=== PATIENT | female | born 1955 | race Caucasian/White ===

== ENCOUNTER 2021-07-26 16:48 | Inpatient (IN) | payer MEDICARE, OTHER, SELFPAY ==
[2021-07-26 17:15] VITALS: BP 130/57; PULSE 66; RESP 16; TEMP 36.8; O2SAT 93; BMI 28.2
[2021-07-26 20:00] VITALS: BP 116/62; PULSE 62; RESP 18; TEMP 36.9; O2SAT 98
[2021-07-26 20:41] VITALS: O2SAT 93
[2021-07-26] MEDS: Heparin Injection (Vial) 5,000 UNIT/ML VIAL 5000 UNIT SC (21:37)
[2021-07-26] MEDS: Atorvastatin Calcium 20 MG Tablet PO (21:41)
[2021-07-26] MEDS: MELATONIN 3 MG TABLET PO (21:41)
[2021-07-26] MEDS: dexAMETHasone 4 MG Tablet 8 MG PO (21:41)
[2021-07-26] MEDS: levETIRAcetam 1,000 MG Tablet 1000 MG PO (21:41)
[2021-07-26] MEDS: QUEtiapine 25 MG Tablet 75 MG PO (21:41)
[2021-07-26] MEDS: busPIRone 5 MG Tablet PO (21:41)
[2021-07-26 22:15] LABS: Bedside Glucose 122 mg/dL (70-110)
[2021-07-27 06:23] LABS: Absolute Lymphocyte Count 1.17 X10^3/uL (0.83-4.51); Absolute Neutrophil Count 6.7 X10^3/uL (2.0-7.7); Basophil# 0.01 X10^3/uL; Basophil% 0.1 % (0-1); Hematocrit 37.9 % (37-47); Hemoglobin 13.1 g/dL (12.0-15.0); Lymphocyte # 1.17 X10^3/ul (0.83-4.51); Lymphocyte % 13.5 % (19-41); Mean Corp Hgb Conc 34.6 g/dL (32-36); Mean Corpuscular Hgb 29.2 pg (27.0-32.0); Mean Corpuscular Volume 84.6 fL (81-99); Mean Platelet Vol. 10.9 fl (6.2-12.0); Monocyte# 0.71 X10^3/uL; Monocyte% 8.2 % (0-10); NRBC Flagged by Analyzer 0 % (0-5); Neutrophil # 6.67 X10^3/uL (2.7-7.7); Neutrophil % 77.2 % (47-70); Platelet Count 205 K/mm3 (150-450); RBC Distribution Width CV 14.2 % (11.6-14.6); RBC Distribution Width SD 43.6 fl (35.1-43.9); Red Blood Count 4.48 M/mm3 (4.2-5.4); White Blood Count 8.7 K/mm3 (4.4-11.0)
[2021-07-27 07:06] LABS: Bedside Glucose 104 mg/dL (70-110)
[2021-07-27 08:00] VITALS: BP 126/85; PULSE 67; RESP 15; TEMP 35.7; O2SAT 100
[2021-07-27] MEDS: Multivitamins,Therapeutic Tablet 1 TABLET PO (08:19)
[2021-07-27] MEDS: dexAMETHasone 4 MG Tablet 2 MG PO ×2 (08:19→17:18)
[2021-07-27 08:34] VITALS: BP 133/84; BP 143/86; BP 144/92; PULSE 61; PULSE 68; PULSE 83
[2021-07-27] MEDS: busPIRone 5 MG Tablet PO ×2 (10:14→22:18)
[2021-07-27] MEDS: Fluticasone 0.05% 1 SPRAY NASAL.SRY NASAL (10:14)
[2021-07-27] MEDS: Heparin Injection (Vial) 5,000 UNIT/ML VIAL 5000 UNIT SC ×2 (10:15→22:18)
[2021-07-27] MEDS: hydroCHLOROthiazide 12.5mg 12.5 MG PO (10:16)
[2021-07-27] MEDS: levETIRAcetam 1,000 MG Tablet 1000 MG PO ×2 (10:16→22:18)
[2021-07-27] MEDS: Pantoprazole Sodium 40 MG Tablet PO (10:17)
[2021-07-27] MEDS: Senna/Docusate Sodium 1 Tablet 2 TABLET PO ×2 (10:18→22:18)
[2021-07-27] MEDS: PARoxetine CR 12.5 MG Tablet 25 MG PO (10:19)
[2021-07-27] MEDS: QUEtiapine 25 MG Tablet 75 MG PO ×2 (10:20→18:00)
[2021-07-27] MEDS: Ascorbic Acid 500 MG Tablet PO (11:09)
[2021-07-27 11:16] LABS: Bedside Glucose 116 mg/dL (70-110)
[2021-07-27 11:54] LABS: ALB/GLOB Ratio 0.9 RATIO (0.9-2.4); AST(SGOT) 19 U/L (15-37); Alanine Aminotransfer ALT/SGPT 30 U/L (13-56); Albumin, Serum 3.2 g/dL (3.2-5.0); Alkaline Phosphatase 70 U/L (45-117); Anion Gap 5 (5-15); BUN 23 mg/dL (7-18); BUN/Creat Ratio 29.2 RATIO (10-20); Calcium,Total 9.8 mg/dL (8.5-10.1); Chloride 108 mmol/L (98-107); Creatinine, Serum 0.79 mg/dL (0.55-1.02); EST Glomerular Filtration Rate 77 mL/min (>60); Est Glom Filt Rate - Afr Amer 94 mL/min (>60); Estimated Creatinine Clearance 49.12 ml/min; Globulin 3.5 g/dL (2.2-4.2); Glucose 128 mg/dL (74-106); Phosphorus 3.4 mg/dL (2.5-4.9); Protein, Total 6.7 g/dL (6.4-8.2); Sodium Level 141 mmol/L (136-145)
[2021-07-27 13:38] VITALS: O2SAT 100
[2021-07-27 16:16] LABS: Bedside Glucose 198 mg/dL (70-110)
[2021-07-27] MEDS: Insulin Lispro 100 UNIT/ML INSULN.PEN SC ×2 (17:19→22:28)
[2021-07-27 19:30] VITALS: BP 126/75; PULSE 62; RESP 16; TEMP 36.6; O2SAT 95
[2021-07-27 21:11] LABS: Bedside Glucose 150 mg/dL (70-110)
[2021-07-27 22:00] VITALS: PULSE 75; RESP 16; O2SAT 96
[2021-07-27] MEDS: MELATONIN 3 MG TABLET PO (22:18)
[2021-07-27] MEDS: Atorvastatin Calcium 20 MG Tablet PO (22:18)
[2021-07-28 06:45] LABS: Bedside Glucose 106 mg/dL (70-110)
[2021-07-28 08:00] VITALS: BP 117/68; PULSE 71; RESP 18; TEMP 36.6; O2SAT 97
[2021-07-28] MEDS: QUEtiapine 25 MG Tablet 75 MG PO (08:03)
[2021-07-28] MEDS: hydroCHLOROthiazide 12.5mg 12.5 MG PO (09:28)
[2021-07-28] MEDS: PARoxetine CR 12.5 MG Tablet 25 MG PO (09:28)
[2021-07-28] MEDS: Multivitamins,Therapeutic Tablet 1 TABLET PO (09:29)
[2021-07-28] MEDS: levETIRAcetam 1,000 MG Tablet 1000 MG PO ×2 (09:29→19:57)
[2021-07-28] MEDS: Senna/Docusate Sodium 1 Tablet 2 TABLET PO ×2 (09:29→19:56)
[2021-07-28] MEDS: busPIRone 5 MG Tablet PO ×2 (09:29→19:54)
[2021-07-28] MEDS: Ascorbic Acid 500 MG Tablet PO (09:29)
[2021-07-28] MEDS: Pantoprazole Sodium 40 MG Tablet PO (09:29)
[2021-07-28] MEDS: dexAMETHasone 4 MG Tablet 2 MG PO ×2 (09:30→17:09)
[2021-07-28] MEDS: Heparin Injection (Vial) 5,000 UNIT/ML VIAL 5000 UNIT SC ×2 (09:39→21:56)
[2021-07-28] MEDS: Fluticasone 0.05% 1 SPRAY NASAL.SRY NASAL (09:39)
--- NOTE | 2021-07-28 10:00 | NURSING ---
Patient agitated, cursing at staff, yelling and screaming cuss words. Patient repetitively stating, let me and it is over and my doesn't understand. Patient is alert to self and cannot state where she is or what her husbands name is. Refused breakfast. Multiple cues to get up OOB to go the bathroom with staff and constant cues on how to use the walker. 1:1 provided and ineffective. Patient assisted back to bed after using the bathroom. Call siddiqui in place, bed placed in low position. updated this nurse this morning that her normal Seroquel dose for her mental illness is 200mg and he will bring in her pill bottle for this nurse to observe.
[2021-07-28 10:48] LABS: MG Sendout 2.2 mg/dL (1.6-2.3)
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
[2021-07-28 11:10] LABS: Bedside Glucose 140 mg/dL (70-110)
[2021-07-28 11:45] VITALS: O2SAT 98
--- NOTE | 2021-07-28 11:58 | REHABEVAL_ITS ---
Admission Information Primary Diagnosis:: Debility due to malignant brain tumor with recent craniotomy for debulking. Status Changes from Prescreening?: No changes Identified Actual Problem List:: Skin Intergrity, Pain, ALteration in Cmfrt, Cognitve Impr/Memory Loss, Depression, Alteration in Nutrition, Mobility Impaired, Ineffective Communication, Fluid Change-Dehydration and Alteration-Leisure Activ. Potential Problem List:: DVT, Bleeding, Infection, UTI, Aspiration, Falls, Skin Integrity and Depression Risk of Complications DVT: JOAN Hose and - (Heparin 5000 units subcu twice daily) Bleeding: Monitor Lab Values, Nursing to Teach Precautions for anti-coagulation therapy., Wound, if applicable, to be assessed every shift. and Stroke patients assessed for lethargy or change in status. Infection: Clinical Staff to Monitor for S/S of infection: and S/S of infection include fever, redness, warmth, etc. Urinary Tract Infection: Monitor for frequency, burning, discomfort, or incontinence. and Nursing will obtain urine sample for urinalysis and C&S when ordered. Aspiration: Clinical staff will monitor for coughing, drooling, congestion., Speech will evaluate swallowing and dsyphasia. and Nursing will monitor patient swallowing during meals. Falls: Patient will be evaluated for Fall Precautions and Patient will be placed on Fall Precautions as indicated per protocol. Skin Breakdown: Nursing will assess skin daily using assessment tool. and Nursing will place on Skin Breakdown Precautions as indicated. Pain: Clinical staff will assess patient's pain level per protocol., Medications will be given, if needed, and the pain level reassessed. and Other methods: Massage, distraction, decrease stimulus, etc. used PRN. Plan of Care Patient requires physician specializing in physical medicine and rehab oversight to provide close medical supervision of rehab issues including: Pain Management, Sleep Problems, Bowel and Bladder, Medical and co-morbidity Management, DVT prophylaxis, Rehabilitation Leadership and Coordination of treatment team Patient needs Physical Therapy: For a minimum of 1 hour and At least 5 out of 7 days Patient needs Physical Therapy to improve:: Mobility, Strengthening, Transfers, Stretching, ROM, Endurance, Stairs, Gait and Balance Patient needs Occupational Therapy: For a minimum of 1 hour and At least 5 out of 7 days Patient needs Occupational Therapy to improve ADL's incl.: Eating, Grooming, Bathing, Dressing, Toileting, Toilet transfers, Community Reintegration, Higher functioning activities, Household tasks, Adaptive Equipment, Splinting and Other activities as determined Patient requires speech therapy: For a minimum of 1 hour and At least 5 out of 7 days Patient requires speech therapy for: Swallowing, Cognition, Language Skills and Compensatory Strategies Patient requires 24/ Rehabilitation Nursing for: Pain Issues, Identifying and preventing risk factors, Monitoring and reporting current medical conditions, Assisting with ambulation, transfer, and all ADL's, Teaching patients about disease process and medications, Family teaching, Providing safe environment, Bowel and Bladder Issues, Skin integrity and Medication Management Patient needs Funeral Assistant/ Case Management for: Discharge Planning, Arranging Home Equipment or Services and Family Interventions Patient needs Dietary and Nutrition Services for: Adequate Nutrition, Nutritional Supplements and Nutritional Education Goals Patient will remain: free from falls and or injury at time of discharge. Patient will perform bed mobility at: MOD I level of assist. Patient will complete transfers from bed to chair at: MOD I level of assist. Patient will ambulate: 100 feet, with LRD and - (250 feet without an assistive device independently.) Patient will complete upper body dressing at: MOD I level of assist. Patient will complete lower body dressing at: MOD I level of assist. Patient will complete toileting at: MOD I level of assist. Patient will perform bathing at: MOD I level of assist. Patient will complete grooming at: MOD I level of assist. Patient will complete home management skills at: MOD I level of assist. Patient will achieve: - (1 curb step and 3 steps with 1 handrail at mod I in order to return home safely.) Patient will have pain level of: of 3 or less Patient's skin will: remain intact Patient will receive: adequate nutrition. Discharge Planning Pt Prognosis for Sig. Practical Improv. w/in Reasonable Time: Good Estimated Length of stay (days): 21 Anticipated D/C Destination: Home w/ family or friends Was Preadmission Assessment Accurate?: Yes
[2021-07-28 12:17] LABS: Mucous, Urine 0 SEEN /hpf (<or=2+)
[2021-07-28 12:20] LABS: Color, Urine Yellow (Yellow); Glucose, Dipstick Normal (Normal); Ketone-Dipstick Negative (Negative); Leukocyte Esterase-Dipstick 500 /ul (Negative); Nitrite-Dipstick Negative (Negative); Occult Blood-Urine 50 /ul (Negative); Protein-Dipstick Negative (Negative); Specific Gravity, Urine 1.015 (1.002-1.030); Urine Bilirubin Dipstick Negative (Negative); Urine Clarity Sl. Cloudy (Clear); Urine Urobilinogen Normal (Normal)
[2021-07-28 12:27] LABS: Bacteria 2+ /hpf (None Seen); Red Blood Cells-Urine 0-5 SEEN /hpf (0-5); Squamous Epithelial Cells - UA 0-5 SEEN /hpf (5-10); White Blood Cells 25-50 SEEN /hpf (0-5)
[2021-07-28 16:21] LABS: Bedside Glucose 129 mg/dL (70-110)
[2021-07-28 19:45] VITALS: BP 107/63; PULSE 59; RESP 16; TEMP 36.4; O2SAT 98
[2021-07-28] MEDS: Cefadroxil 500 MG CAPSULE PO (19:54)
[2021-07-28] MEDS: QUETIAPINE FUMARATE 200 MG TABLET PO (19:54)
[2021-07-28] MEDS: MELATONIN 3 MG TABLET PO (19:56)
[2021-07-28] MEDS: Atorvastatin Calcium 20 MG Tablet PO (19:56)
[2021-07-28 22:06] LABS: Bedside Glucose 131 mg/dL (70-110)
--- NOTE | 2021-07-29 04:40 | NURSING ---
Pt awakened for toileting needs @ 03:45. After getting pt repositioned in bed, pt became anxious. Pt could be heard calling out for someone anbd wanted to know where her could be found, why he wasn't visiting her, and why staff was keeping him from visiting her. Pt became loud and yelled out at one point that she wanted her . Staff reoriented pt to the time of day,attempting to calm her outbursts. Pt became quiet and fell back to sleep after a few minutes when staff was called to other pt's call lights.
--- NOTE | 2021-07-29 05:25 | NURSING ---
per pt request for early physician primary care sports medicine to enable early bedtime.
--- NOTE | 2021-07-29 05:26 | NURSING ---
Addendum entered by Vickie Givens 07/29/21 05:29: Pt incontinent in shower while complaining that spouse was not present to take care of pt. Original Note: Pt perseverating on family not showing concern for pt needs and desires. Pt became defiant with staff for a.m. ADLs. Pt noncompliant with teds this a.m. Staff repositioned pt to bed after showering. Pt is quiet and resting at this moment.
[2021-07-29 07:36] LABS: Bedside Glucose 91 mg/dL (70-110)
[2021-07-29] MEDS: dexAMETHasone 4 MG Tablet 2 MG PO ×2 (08:27→17:39)
[2021-07-29] MEDS: levETIRAcetam 1,000 MG Tablet 1000 MG PO ×2 (08:32→20:43)
[2021-07-29] MEDS: Cefadroxil 500 MG CAPSULE PO ×2 (08:32→20:42)
[2021-07-29] MEDS: busPIRone 5 MG Tablet PO ×2 (08:32→20:42)
[2021-07-29] MEDS: PARoxetine CR 12.5 MG Tablet 25 MG PO (08:33)
[2021-07-29] MEDS: Ascorbic Acid 500 MG Tablet PO (08:34)
[2021-07-29] MEDS: Senna/Docusate Sodium 1 Tablet 2 TABLET PO ×2 (08:34→20:43)
[2021-07-29] MEDS: Fluticasone 0.05% 1 SPRAY NASAL.SRY NASAL (08:35)
[2021-07-29] MEDS: Pantoprazole Sodium 40 MG Tablet PO (08:35)
[2021-07-29] MEDS: Multivitamins,Therapeutic Tablet 1 TABLET PO (08:35)
[2021-07-29] MEDS: Heparin Injection (Vial) 5,000 UNIT/ML VIAL 5000 UNIT SC ×2 (08:39→20:44)
[2021-07-29 08:54] VITALS: BP 123/74; PULSE 72; RESP 18; TEMP 36.4; O2SAT 96
[2021-07-29 11:10] LABS: Bedside Glucose 146 mg/dL (70-110)
--- NOTE | 2021-07-29 12:17 | PN_ITS ---
Progress Note Afebrile VSS Maintaining appropriate oxygen saturation on RA Oral intake barely adequate. She will drink fluids when you offer to her but, does not initiate on her own. Discussed with nursing - Keeps repeating that she wants to . Reviewed the PT/OT/ST notes Medication list reviewed. I reviewed the path report from [facility]. 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 There were many immunohistochemistry genetic tests done which I have reviewed but, I am not familiar with. Physical Exam Const alert Constitutional Narrative: Her is in the room and Adele is calm and appropriate with me. She was very agitated this morning. She calms down when Griffin shows up but, when he leaves she can no remember that he has been here and she is agitated again. Resp clear to auscultation bilaterally Resp Narrative: able to follow commands. Effort and Inspection: able to speak in complete sentences Cardio regular rate and regular rhythm GI normal to inspection, nondistended, normoactive bowel sounds and soft to palpation Extremity no pedal edema Assessment & Plan Assessment/Plan (1) Delirium: (2) Glioma of brain: (3) UTI (urinary tract infection): (4) Paranoid schizophrenia: (5) Status post craniotomy: PLAN: 1. Efforts to do therapy are thwarted by agitation and delirium which is multifactorial. She has a glioma, she had a craniotomy for resection/debulking but there is residual tumor, she has been on steroids for cerebral edema, she has a UTI and she is having an exacerbation of her underlying chronic mental illness (paranoid schizophrenia). Will try again tomorrow to reach her psychiatrist at the [facility] for advice on adjusting her psych meds. 2. she has poor motivation to do therapy since she tells me she is dying and she wants to lay in bed. Will try and get the mental illness under beter control and treat the UTI. Can not taper the steroids any faster. Will continue to try and get her to participate but, if things do not turn around in the next few days we will be forced to downgrade the level of care. 3. Continue the Cefadroxil. Visit Charges Inpatient E&M: 65993 Subs Hosp L2
[2021-07-29 16:20] LABS: Bedside Glucose 115 mg/dL (70-110)
[2021-07-29 20:30] VITALS: BP 126/76; PULSE 74; RESP 16; TEMP 36.9; O2SAT 98
[2021-07-29] MEDS: QUETIAPINE FUMARATE 200 MG TABLET PO (20:41)
[2021-07-29] MEDS: Atorvastatin Calcium 20 MG Tablet PO (20:43)
[2021-07-29] MEDS: MELATONIN 3 MG TABLET PO (20:43)
[2021-07-29 22:00] VITALS: PULSE 74; RESP 16; O2SAT 98
[2021-07-29 22:00] LABS: Bedside Glucose 147 mg/dL (70-110)
--- NOTE | 2021-07-30 03:27 | NURSING ---
Reviewed and agree with DIESEL LOCOMOTIVE CRANE OPERATOR assessment and note.
[2021-07-30] MEDS: Haloperidol Lactate 5 MG/ML Vial 3 MG IM (07:34)
--- NOTE | 2021-07-30 07:40 | PN_ITS ---
Progress Note Day #3 cefadroxil for UIT. final C&S pending Afebrile Vital signs stable Maintaining appropriate oxygen saturation on room air She is agitated and yelling today. She insists she is dying and does not know where she is. States I am all alone. Insists her Griffin has not been to see her and he is out fooling around. Remembers that she had surgery but, does not know where she is now or why she is here. She will make eye contact with me when I ask her to look at me and she is listening to what I say. I reoriented her and explained to her why she is confused and why she is in rehab. We discussed that the glioma is treatable. I called Griffin and asked that he come in and he agreed to come in this morning. She was given 3 mg of IM Haldol and she agreed to taking the medication. She was put back in bed. I informed her that Griffin would be in very soon to see her. Physical Exam Const alert Constitutional Narrative: oriented to person only Eyes PERRL, EOMs intact bilaterally, conjunctivae normal and no scleral icterus Neck No nuchal rigidity and supple Resp Resp Narrative: unlabored, no conversational dyspnea, CTA, not tachypneic Cardio regular rate, regular rhythm and no gallops GI normal to inspection, nondistended, normoactive bowel sounds, soft to palpation and non-tender Extremity no pedal edema Psych Appearance: grossly normal Attitude: uncooperative and agitated Activity / Motor Behavior: restless, avoids eye contact and other She will look at me when I ask her to. Speech: loud Mood & Affect: irritable and labile affect Thought Process: confused and illogical Memory / Cognition: memory grossly impaired Insight: poor Judgement: poor Assessment & Plan Assessment/Plan (1) Delirium: (2) UTI (urinary tract infection): (3) Status post craniotomy: (4) Glioma of brain: (5) Paranoid schizophrenia: PLAN: 1. Adele's delirium is multifactorial. She has a Glioma of the brain, she has long standing hx of paranoid schizophrenia that has been exacerbated by steroids, brain tumor, recent surgery, fear of dying. She was given 3 mg of Haldol IM and she is now resting. Griffin will be coming to the hospital as soon as he can get here. She is calmer when he is here. Will touch base with her psychiatrist today to see what adjustments can be made to her medications. Steroids are on a taper. It may help to have a family member stay at night. Will discuss with Griffin. 2. Will continue the Cefadroxil and await the final culture and sensitivity res ults to make changes if necessary. 3. Continue therapy when she is cooperative. 4. Blood sugars are coming down as the steroids are tapered and she has not had to get any insulin. Will DC the accuchecks and the SSI. 5. she has appts at [facility] on the ......Will have nursing see if this can be rescheduled. She is not emotionally ready for this and I think we should delay. I reached the answering service for the [facility]. I will call back about 9;30 when they should be answering the phone in the office. Visit Charges Inpatient E&M: 28540 Subs Hosp L2
--- NOTE | 2021-07-30 07:46 | NURSING ---
0700 am care completed with queuing, pt returned to bed and declined to sit in the chair, and laid down in the bed. pt stated that he did not come in and see her yesterday and she wanted to see him, but he was probably out having fun letting her in here. pt was reminded several times that he was in to see her yesterday and would be in today during visiting hour which was at 4o'clock. pt looked at this staff member suspiciously and kept stating that he was not here yesterday at all. pt got oob on her own and went to the straight chair and staff went to see that she was ok. staff again stated to pt that her spouse was here yesterday and pt started yelling that she wanted to see her and she wanted to see him now. staff aske pt if she wanted us to call her spouse and pt yelled that he was out having fun. staff reported to the doctor that pt was getting increasingly agitated and the doctor went in to talk to pt. 1st staff recieved [place] and was given. doctor talked spouse and updated him on pts behavior and asked him to come to see pt 0745 pt resting quietly in the bed at this time. no needs are voiced and call light in reach
[2021-07-30] MEDS: dexAMETHasone 4 MG Tablet 2 MG PO ×2 (08:45→16:56)
[2021-07-30] MEDS: Multivitamins,Therapeutic Tablet 1 TABLET PO (08:45)
[2021-07-30] MEDS: busPIRone 5 MG Tablet PO ×2 (08:45→20:01)
[2021-07-30] MEDS: Fluticasone 0.05% 1 SPRAY NASAL.SRY NASAL (08:46)
[2021-07-30] MEDS: Cefadroxil 500 MG CAPSULE PO ×2 (08:46→20:01)
[2021-07-30] MEDS: Heparin Injection (Vial) 5,000 UNIT/ML VIAL 5000 UNIT SC ×2 (08:46→20:01)
[2021-07-30] MEDS: levETIRAcetam 1,000 MG Tablet 1000 MG PO ×2 (08:47→20:01)
[2021-07-30] MEDS: Senna/Docusate Sodium 1 Tablet 2 TABLET PO ×2 (08:47→20:03)
[2021-07-30] MEDS: Pantoprazole Sodium 40 MG Tablet PO (08:47)
[2021-07-30] MEDS: PARoxetine CR 12.5 MG Tablet 25 MG PO (08:47)
[2021-07-30] MEDS: Ascorbic Acid 500 MG Tablet PO (08:48)
--- NOTE | 2021-07-30 09:42 | NURSING ---
[id number]- pt noted to be yelling out and angry at this time. pt screaming that she wants to see her and that he left me here to . pt continues to get agitated and yells at staff. dr ruiz made aware of situation and she goes in to talk to pt. dr ruiz gives verbal order for 3mg Haldol to be given IM. this RN places order in computer and calls pharmacy for med to be sent to unit. once med arrives on unit, this RN explains med to patient and pt understanding. this RN gives IM haldol in R deltoid with assist of JADYN Elizalde. Pt tolerates well and assists pt back into bed. PA attached to shirt and call light within reach. pt denies further needs at this time. Dr. Ruiz calls pt's Griffin and to come in to sit with patient as soon as possible. will continue to monitor for continued agitation.
[2021-07-30 10:00] VITALS: BP 112/78; PULSE 77; RESP 16; TEMP 36.7; O2SAT 97
[2021-07-30 11:51] LABS: Bedside Glucose 101 mg/dL (70-110)
--- NOTE | 2021-07-30 14:24 | CASEMGMT ---
Social Work Attempted to complete initial assessment with pt but confused. Contacted to complete assessment. provided all information. See assessment for further details. Explained Medicare benefit. The goal is for pt to return home at [facility]. reported change in cognition began end of May. SW to continue to follow for discharge options. Adela Mata, VAN CLOCK REPAIR TECHNICIAN
[2021-07-30 19:00] VITALS: BP 117/66; PULSE 64; RESP 16; TEMP 36.6; O2SAT 97
[2021-07-30 19:45] VITALS: PULSE 64; RESP 16; O2SAT 97
[2021-07-30] MEDS: Atorvastatin Calcium 20 MG Tablet PO (20:01)
[2021-07-30] MEDS: ARIPiprazole 2 MG Tablet PO (20:01)
[2021-07-30] MEDS: QUETIAPINE FUMARATE 200 MG TABLET PO (20:01)
[2021-07-30] MEDS: MELATONIN 3 MG TABLET PO (20:03)
--- NOTE | 2021-07-31 03:26 | NURSING ---
REVIEWED AND AGREE WITH ROLLED HAM LACER'S FUNCTIONAL ASSESSMENT AND HANDOFF CHARTING.
[2021-07-31 07:51] VITALS: BP 135/83; PULSE 68; RESP 18; TEMP 36.8; O2SAT 98
[2021-07-31] MEDS: dexAMETHasone 4 MG Tablet 2 MG PO ×2 (07:51→17:05)
[2021-07-31] MEDS: Multivitamins,Therapeutic Tablet 1 TABLET PO (07:56)
[2021-07-31] MEDS: busPIRone 5 MG Tablet PO ×2 (09:20→20:30)
[2021-07-31] MEDS: ARIPiprazole 2 MG Tablet PO ×2 (09:20→20:30)
[2021-07-31] MEDS: Cefadroxil 500 MG CAPSULE PO (09:20)
[2021-07-31] MEDS: Heparin Injection (Vial) 5,000 UNIT/ML VIAL 5000 UNIT SC ×2 (09:21→20:30)
[2021-07-31] MEDS: Fluticasone 0.05% 1 SPRAY NASAL.SRY NASAL (09:21)
[2021-07-31] MEDS: levETIRAcetam 1,000 MG Tablet 1000 MG PO ×2 (09:21→20:30)
[2021-07-31] MEDS: PARoxetine CR 12.5 MG Tablet 25 MG PO (09:21)
[2021-07-31] MEDS: Pantoprazole Sodium 40 MG Tablet PO (09:21)
[2021-07-31] MEDS: Senna/Docusate Sodium 1 Tablet 2 TABLET PO ×2 (09:22→20:31)
[2021-07-31] MEDS: Ascorbic Acid 500 MG Tablet PO (09:22)
--- NOTE | 2021-07-31 11:57 | PCM.PN.BLA ---
Progress Note Afebrile VSS Maintaining appropriate oxygen saturation on RA Discussed with nursing - no problems that need addressed Reviewed the PT/OT/ST notes Medication list reviewed. I spoke to Dr. Lafleur Adele's therapist yesterday about the problems we are having with agitation and paranoia and saying we should let her and she recommended we add Abilify to the Drug regimen. She was started on 2 mg BID and received the first dose last evening. Adele is drowsy today. She ate some breakfast but did not want to eat lunch. She is pleasant and appropriate with me today. No agitation this morning. She slept well last night. She denies headache, lightheadedness, chest pain, shortness of breath, vertigo, nausea/vomiting/abdominal pain. Physical Exam Const Constitutional Narrative: Drowsy but, easily aroused. She is not a morning person and does better in the afternoons with therapy. Eyes PERRL and EOMs intact bilaterally Resp clear to auscultation bilaterally Resp Narrative: diminished, no crackles and no wheezes Effort and Inspection: able to speak in complete sentences Cardio regular rate, regular rhythm and no gallops GI normal to inspection, nondistended, normoactive bowel sounds, soft to palpation and non-tender Extremity no calf tenderness and no pedal edema Skin General Skin Exam: no breakdown Rashes: no rashes Psych Psych Narrative: more drowsy today and I suspect this is due to the Abilify. She is not agitated and she is not demanding her to be here. She did participate with therapy this afternoon. Assessment & Plan Assessment/Plan (1) Delirium: (2) Glioma of brain: (3) UTI (urinary tract infection): (4) Paranoid schizophrenia: (5) Status post craniotomy: PLAN: 1. The Morganella morganii is resistant to first generation cephalosporins. Will discontinue cefadroxil and start Bactrim DS 1 p.o. twice daily for 7 days. 2. Decrease the Abilify to 2 mg p.o. nightly and continue to monitor 3. Continue dexamethasone taper 4. Check a BMP, magnesium and phosphorus in the a.m. 5. Continue therapy 6. Will follow up at [facility] post DC to manage the mental Health issues. 7. Will check with nursing to see if they were able to change the appts she has tomorrow to a date in the future. Visit Charges Inpatient E&M: 19104 Subs Hosp L2
[2021-07-31 19:26] VITALS: BP 126/71; PULSE 80; RESP 16; TEMP 36.7; O2SAT 98
[2021-07-31] MEDS: QUETIAPINE FUMARATE 200 MG TABLET PO (20:29)
[2021-07-31] MEDS: Atorvastatin Calcium 20 MG Tablet PO (20:30)
[2021-07-31] MEDS: MELATONIN 3 MG TABLET PO (20:30)
--- NOTE | 2021-08-01 03:01 | NURSING ---
REVIEWED AND AGREE WITH DIRECTOR NURSING SERVICE'S FUNCTIONAL ASSESSMENT AND HANDOFF CHARTING.
[2021-08-01 06:17] LABS: Anion Gap 6 (5-15); BUN 23 mg/dL (7-18); BUN/Creat Ratio 33.1 RATIO (10-20); Chloride 108 mmol/L (98-107); EST Glomerular Filtration Rate 89 mL/min (>60); Est Glom Filt Rate - Afr Amer 108 mL/min (>60); Estimated Creatinine Clearance 49.12 ml/min; Glucose 89 mg/dL (74-106); Magnesium 2.3 mg/dL (1.6-2.6); Phosphorus 3.2 mg/dL (2.5-4.9); Potassium 4.2 mmol/L (3.5-5.1); Sodium Level 138 mmol/L (136-145)
[2021-08-01] MEDS: dexAMETHasone 4 MG Tablet 2 MG PO ×2 (07:31→17:11)
[2021-08-01] MEDS: Multivitamins,Therapeutic Tablet 1 TABLET PO (07:31)
[2021-08-01 08:06] VITALS: BP 149/83; PULSE 64; RESP 18; TEMP 36.7; O2SAT 98
[2021-08-01] MEDS: busPIRone 5 MG Tablet PO ×2 (09:40→20:23)
[2021-08-01] MEDS: Fluticasone 0.05% 1 SPRAY NASAL.SRY NASAL (09:40)
[2021-08-01] MEDS: levETIRAcetam 1,000 MG Tablet 1000 MG PO ×2 (09:41→20:24)
[2021-08-01] MEDS: PARoxetine CR 12.5 MG Tablet 25 MG PO (09:41)
[2021-08-01] MEDS: Heparin Injection (Vial) 5,000 UNIT/ML VIAL 5000 UNIT SC ×2 (09:41→20:23)
[2021-08-01] MEDS: Pantoprazole Sodium 40 MG Tablet PO (09:42)
[2021-08-01] MEDS: Ascorbic Acid 500 MG Tablet PO (09:42)
[2021-08-01] MEDS: Senna/Docusate Sodium 1 Tablet 2 TABLET PO ×2 (09:42→20:25)
--- NOTE | 2021-08-01 14:01 | CASEMGMT ---
Social Work IDT met with patient, and dtr for Team meeting. Discussed patient's progress in PT/OT/ST and nursing. Explained Medicare approved 13 days with DC 08/08. However, pt has appt at 10 am on 08/08. IDT and agreeable to DC 08/07. Confirmed with he will be taking pt home. states he has seen her throughout the day and with therapy and is comfortable with home. He did ask questions on if it was not successful at home. SW explained HHC to be ordered PT/OT/ST/SN/SHEIKH/SW and will be out without 48 hours of DC. In addition, provided nonskilled HHC agencies to hire assistance. Educated if home is not successful, HHC SW can assist with placement or he can call pt's PCP for placement. If pt does not warrant a hospitalization and it is within 30 days, pt can admit to SNF from the community. Provided [place] and [place] SNF lists, nonskilled HHC list and [facility] resources. Provided skilled HHC list with Medicare data. requesting [facility] Referral made. Pt also needs a FWW. Referred to [facility] and it will be delivered to pt's home prior to DC. to transport. Plan: DC home with 08/07, [facility] PT/OT/ST/SN/SHEIKH/SW, FWW Adela Mata, QUALITY NURSE DEX
--- NOTE | 2021-08-01 18:54 | PCM.PROGNOTE ---
Subjective Subjective Adele was seen on team rounds today. Her Griffin and her daughter were present in the room. When asked when Adele usually gets up in the morning Griffin said about 10 AM......we have found this to be true and the therapists are scheduling her latter in the day when she is more cooperative and awake. Afebrile VSS Maintaining appropriate oxygen saturation on RA Oral intake is poor but getting better. Last bowel movement is listed as 07/29/2021. She is receiving stool softeners. Discussed with nursing - no problems that need addressed Reviewed the PT/OT/ST notes Medication list reviewed. All lab from today was personally reviewed. Sodium potassium and serum bicarb are all within normal limits. Chloride is mildly increased at 108. The BUN is 23 and the creatinine is stable at 0.7. Magnesium is normal and so is the phosphorus. Adele denies headache, lightheadedness, vertigo, chest pain, shortness of breath, calf pain, cough, sore throat, dysuria. She has no complaints to me today. She tells me she is sleeping well. Objective Data Objective Data Vital Signs: Vital Signs Temp Pulse Resp BP Pulse Ox 98.1 F 64 18 149/83 H 98 08/01/21 08:06 08/01/21 08:06 08/01/21 08:06 08/01/21 08:06 08/01/21 08:06 Oxygen Delivery Method Room Air Weight: 169 lb 12.095 oz Body Mass Index (BMI) 28.2 Intake & Output: Intake and Output for Last 24 Hours 07/30/21 07/31/21 08/01/21 23:59 23:59 23:59 Intake Total 600 / 600 360 / 360 560 / 560 Output Total 350 / 350 700 / 700 Balance 600 / 600 -140 / -140 Lab / Micro Data Result Diagrams: 07/27/21 05:58 08/01/21 05:43 Labs: Laboratory Results - last 24 hr 08/01/21 05:43: Sodium 138, Potassium 4.2, Chloride 108 H, Carbon Dioxide 24.0, Anion Gap 6, BUN 23 H, Creatinine 0.70, Estim Creat Clear Calc 49.12, Est GFR (MDRD) Af Amer 108, Est GFR (MDRD) Non-Af 89, BUN/Creatinine Ratio 33.1 H, Glucose 89, Calcium 10.0, Phosphorus 3.2, Magnesium 2.3 Micro: Microbiology 07/28/21 12:00 Urine, Catheterized Urine Culture - Final Morganella morganii sp morgani Klebsiella pneumoniae sp pneum Physical Exam Const alert Constitutional Narrative: She is oriented to person and she can tell me where she is. She is pleasant and responding to questions appropriately. She is smiling and cooperative currently. HEENT HEENT Narrative: Mucous membranes are dry. Eyes PERRL, EOMs intact bilaterally, conjunctivae normal and no scleral icterus Neck full ROM and No nuchal rigidity Resp Resp Narrative: Decreased respiratory effort but clear to auscultation bilaterally with no tachypnea no accessory muscle use. She is able to speak in complete sentences. She is lying flat in bed with no shortness of breath. Cardio regular rate, regular rhythm, S1 normal heart sound, S2 normal heart sound and no gallops GI normal to inspection, nondistended, normoactive bowel sounds, soft to palpation and non-tender GI Narrative: No guarding with palpation Extremity no calf tenderness and no pedal edema Skin General Skin Exam: no breakdown Rashes: no rashes Wound Narrative: The incision is intact with no erythema and no purulent discharge. There is no significant swelling around the incision. Neuro CN's II-XII intact bilaterally and moves all extremities Neuro Narrative: Oriented to person and place today. She cannot tell me the year or the month. Psych Psych Narrative: Still periodically getting agitated and lashing out. This seems to mostly occur when she awakens from a deep sleep and does not recognize where she is. She immediately starts asking for her . When Griffin is with her she is calm and appropriate. She is also calm and appropriate in the afternoons when she is doing therapy. We have not had to give any Haldol or Geodon recently. Assessment & Plan Assessment/Plan (1) Glioma of brain: (2) Dehydration: (3) Paranoid schizophrenia: (4) Status post craniotomy: (5) Aphasia: PLAN: 1. Continue cefadroxil ......She is denying dysuria and the urine is no longer foul smelling. She has no fevers. I am concerned about possible adverse side effects with Bactrim. 2. Continue therapy. 3. Continue Abilify 4. Encouraged her to increase her water intake. Charges/Coding Visit Charges Inpatient E&M: 89965 Subs Hosp L2
[2021-08-01 19:26] VITALS: BP 116/50; PULSE 80; RESP 17; TEMP 36.4; O2SAT 95
[2021-08-01] MEDS: QUETIAPINE FUMARATE 200 MG TABLET PO (20:22)
[2021-08-01] MEDS: ARIPiprazole 2 MG Tablet PO (20:22)
[2021-08-01] MEDS: MELATONIN 3 MG TABLET PO (20:25)
[2021-08-01] MEDS: Atorvastatin Calcium 20 MG Tablet PO (20:25)
[2021-08-01 22:00] VITALS: PULSE 66; RESP 16; O2SAT 96
[2021-08-02 07:49] VITALS: BP 112/64; PULSE 64; RESP 16; TEMP 37
[2021-08-02] MEDS: levETIRAcetam 1,000 MG Tablet 1000 MG PO ×2 (07:59→20:37)
[2021-08-02] MEDS: busPIRone 5 MG Tablet PO ×2 (07:59→20:38)
[2021-08-02] MEDS: PARoxetine CR 12.5 MG Tablet 25 MG PO (07:59)
[2021-08-02] MEDS: dexAMETHasone 4 MG Tablet 2 MG PO ×2 (07:59→16:53)
[2021-08-02] MEDS: ARIPiprazole 2 MG Tablet PO ×2 (07:59→20:39)
[2021-08-02] MEDS: Heparin Injection (Vial) 5,000 UNIT/ML VIAL 5000 UNIT SC ×2 (08:00→20:37)
[2021-08-02] MEDS: Multivitamins,Therapeutic Tablet 1 TABLET PO (08:00)
[2021-08-02] MEDS: Fluticasone 0.05% 1 SPRAY NASAL.SRY NASAL (08:00)
[2021-08-02] MEDS: Senna/Docusate Sodium 1 Tablet 2 TABLET PO ×2 (08:00→20:36)
[2021-08-02] MEDS: Ascorbic Acid 500 MG Tablet PO (08:00)
[2021-08-02] MEDS: Pantoprazole Sodium 40 MG Tablet PO (08:00)
[2021-08-02 18:56] VITALS: BP 111/82; PULSE 65; RESP 15; TEMP 36.4; O2SAT 97
[2021-08-02] MEDS: QUETIAPINE FUMARATE 200 MG TABLET PO (20:31)
[2021-08-02] MEDS: Atorvastatin Calcium 20 MG Tablet PO (20:37)
[2021-08-02] MEDS: MELATONIN 3 MG TABLET PO (20:37)
[2021-08-02 21:00] VITALS: PULSE 69; RESP 15; O2SAT 97
--- NOTE | 2021-08-03 06:42 | NURSING ---
pt set off alarms and found standing at foot of bed. Pt reminded of call light use and safety protocol.
[2021-08-03 07:18] VITALS: BP 116/81; PULSE 64; RESP 18; TEMP 36.6; O2SAT 99
[2021-08-03] MEDS: dexAMETHasone 4 MG Tablet 2 MG PO ×2 (08:39→17:13)
[2021-08-03] MEDS: Multivitamins,Therapeutic Tablet 1 TABLET PO (08:40)
[2021-08-03] MEDS: busPIRone 5 MG Tablet PO ×2 (08:40→20:10)
[2021-08-03] MEDS: PARoxetine CR 12.5 MG Tablet 25 MG PO (08:40)
[2021-08-03] MEDS: ARIPiprazole 2 MG Tablet PO ×2 (08:42→20:11)
--- NOTE | 2021-08-03 09:00 | NURSING ---
Agitated on and off. Patient needs reapproached and then her demeanor will change and she is only alert to self.
[2021-08-03] MEDS: Fluticasone 0.05% 1 SPRAY NASAL.SRY NASAL (09:37)
[2021-08-03] MEDS: Heparin Injection (Vial) 5,000 UNIT/ML VIAL 5000 UNIT SC ×2 (09:39→20:09)
[2021-08-03] MEDS: Ascorbic Acid 500 MG Tablet PO (09:39)
[2021-08-03] MEDS: levETIRAcetam 1,000 MG Tablet 1000 MG PO ×2 (09:39→20:10)
[2021-08-03] MEDS: Pantoprazole Sodium 40 MG Tablet PO (09:39)
--- NOTE | 2021-08-03 19:13 | NURSING ---
Refused to shower or wash her hair today.
[2021-08-03] MEDS: QUETIAPINE FUMARATE 200 MG TABLET PO (20:09)
[2021-08-03] MEDS: Senna/Docusate Sodium 1 Tablet 2 TABLET PO (20:10)
[2021-08-03] MEDS: MELATONIN 3 MG TABLET PO (20:10)
[2021-08-03] MEDS: Atorvastatin Calcium 20 MG Tablet PO (20:10)
[2021-08-03 20:15] VITALS: BP 118/80; PULSE 63; RESP 17; TEMP 36.6; O2SAT 96
--- NOTE | 2021-08-04 02:36 | NURSING ---
Reviewed and agree with APPRENTICE EMBALMER documentation and assessment charting.
[2021-08-04] MEDS: Ascorbic Acid 500 MG Tablet PO (07:40)
[2021-08-04] MEDS: dexAMETHasone 4 MG Tablet 2 MG PO ×2 (07:40→15:38)
[2021-08-04] MEDS: Pantoprazole Sodium 40 MG Tablet PO (07:40)
[2021-08-04] MEDS: busPIRone 5 MG Tablet PO ×2 (07:41→19:55)
[2021-08-04] MEDS: ARIPiprazole 2 MG Tablet PO ×2 (07:41→19:56)
[2021-08-04] MEDS: levETIRAcetam 1,000 MG Tablet 1000 MG PO ×2 (07:41→19:55)
[2021-08-04] MEDS: Multivitamins,Therapeutic Tablet 1 TABLET PO (07:41)
[2021-08-04] MEDS: PARoxetine CR 12.5 MG Tablet 25 MG PO (07:41)
[2021-08-04] MEDS: Fluticasone 0.05% 1 SPRAY NASAL.SRY NASAL (07:42)
[2021-08-04] MEDS: Heparin Injection (Vial) 5,000 UNIT/ML VIAL 5000 UNIT SC ×2 (07:43→20:11)
[2021-08-04 07:49] VITALS: BP 148/73; PULSE 59; RESP 16; TEMP 35.9; O2SAT 95
[2021-08-04 19:55] VITALS: BP 126/78; PULSE 67; RESP 18; TEMP 36.2; O2SAT 97
[2021-08-04] MEDS: MELATONIN 3 MG TABLET PO (19:55)
[2021-08-04] MEDS: Senna/Docusate Sodium 1 Tablet 2 TABLET PO (19:56)
[2021-08-04] MEDS: Atorvastatin Calcium 20 MG Tablet PO (19:56)
[2021-08-04] MEDS: QUETIAPINE FUMARATE 200 MG TABLET PO (19:57)
--- NOTE | 2021-08-05 01:00 | NURSING ---
pt has been up several times this hs to urinate. pt is pleasant and cooperative and joking with staff this evening. she denied any sx of burning, discomfort in the bladder area. pt ad gotten oob this hs and was found wandering the room looking for the bathroom, and while in the br was looking for trash to throw away. pt could directed to something else easily. pt is alert only self this hs and doesn't know were she is or why, but did remember that her daughters were here earlier in the day. she continues to talk about getting a shower later and how good that will feel, staff encouraged this train of thought and told pt she had plenty of time to sleep before taking one. pt returns to be readily and thanks staff
[2021-08-05 07:35] VITALS: BP 120/72; PULSE 65; RESP 17; TEMP 36.4; O2SAT 98
[2021-08-05] MEDS: dexAMETHasone 4 MG Tablet 2 MG PO ×2 (07:46→16:52)
[2021-08-05] MEDS: Pantoprazole Sodium 40 MG Tablet PO (07:46)
[2021-08-05] MEDS: levETIRAcetam 1,000 MG Tablet 1000 MG PO ×2 (07:46→20:00)
[2021-08-05] MEDS: Multivitamins,Therapeutic Tablet 1 TABLET PO (07:46)
[2021-08-05] MEDS: ARIPiprazole 2 MG Tablet PO ×2 (07:46→20:00)
[2021-08-05] MEDS: busPIRone 5 MG Tablet PO ×2 (07:46→20:00)
[2021-08-05] MEDS: Ascorbic Acid 500 MG Tablet PO (07:48)
[2021-08-05] MEDS: PARoxetine CR 12.5 MG Tablet 25 MG PO (07:48)
[2021-08-05] MEDS: Heparin Injection (Vial) 5,000 UNIT/ML VIAL 5000 UNIT SC ×2 (07:51→20:00)
[2021-08-05] MEDS: Fluticasone 0.05% 1 SPRAY NASAL.SRY NASAL (07:53)
--- NOTE | 2021-08-05 10:13 | PCM.PROGNOTE ---
Subjective Subjective Afebrile VSS Maintaining appropriate oxygen saturation on RA Oral intake is adequate Discussed with nursing - no problems that need addressed Reviewed the PT/OT/ST notes Medication list reviewed. Has not had Haldol in several days. Currently down to 2 mg of Decadron twice daily. Adele's only complaint today is constipation. She has had a BM every day since the . She denies SHEIKH, dizziness, CP, SOB, palpitations, n/v/abd pain, dysuria. she is sleeping well at night. I watched her in therapy this morning and she was talkative, pleasant and following commands well. she was very pleasant with me today. When I asked her when is the last time Griffin came to visit she could not tell me but, she did not jump to he is cheating and she did not get upset at all. Objective Data Objective Data Vital Signs: Vital Signs Temp Pulse Resp BP Pulse Ox 97.5 F L 65 17 120/72 98 08/05/21 07:35 08/05/21 07:35 08/05/21 07:35 08/05/21 07:35 08/05/21 07:35 Oxygen Delivery Method Room Air Weight: 165 lb 5.547 oz Body Mass Index (BMI) 28.2 Intake & Output: Intake and Output for Last 24 Hours 08/03/21 08/04/21 08/05/21 23:59 23:59 23:59 Intake Total 1260 / 1260 1410 / 1410 Output Total 1750 / 1750 400 / 400 Balance -490 / -490 1010 / 1010 Lab / Micro Data Result Diagrams: 07/27/21 05:58 08/01/21 05:43 Micro: Microbiology 07/28/21 12:00 Urine, Catheterized Urine Culture - Final Morganella morganii sp morgani Klebsiella pneumoniae sp pneum Physical Exam Const alert and no apparent distress Constitutional Narrative: Lying in bed Resp clear to auscultation bilaterally Resp Narrative: Decreased respiratory effort, no wheezes, no Rales, no rhonchi. Able to complete full sentences with no shortness of breath. Cardio regular rate, regular rhythm and no gallops GI normal to inspection, nondistended, normoactive bowel sounds, soft to palpation and non-tender GI Narrative: No guarding with palpation Extremity no calf tenderness and no pedal edema Skin General Skin Exam: no breakdown Rashes: no rashes Wound Narrative: Incision is intact with no erythema or purulent discharge. Neuro CN's II-XII intact bilaterally and moves all extremities Psych Psych Narrative: Less agitated. Sleeping well at night now. She is continent. Not hallucinating. Assessment & Plan Assessment/Plan (1) Glioma of brain: (2) Dehydration: (3) Paranoid schizophrenia: (4) Status post craniotomy: (5) Aphasia: PLAN: 1. Repeat a UA today to make sure the pyuria has resolved. The Morganella was R to cephalosporins but the sx resolved and the urine was no longer foul smelling. 2. Plan on DC home Thursday. Griffin does not feel it is necessary for him to have family training. Charges/Coding Visit Charges Inpatient E&M: 78534 Subs Hosp L2
[2021-08-05] MEDS: Haloperidol 1 MG Tablet PO (15:04)
[2021-08-05 15:39] LABS: Bacteria 0 SEEN /hpf (None Seen); Mucous, Urine 0 SEEN /hpf (<or=2+); Red Blood Cells-Urine 0 SEEN /hpf (0-5); Squamous Epithelial Cells - UA 0 SEEN /hpf (5-10); White Blood Cells 0 SEEN /hpf (0-5)
[2021-08-05 15:53] LABS: Color, Urine Yellow (Yellow); Glucose, Dipstick Normal (Normal); Ketone-Dipstick Negative (Negative); Leukocyte Esterase-Dipstick Negative /ul (Negative); Nitrite-Dipstick Negative (Negative); Occult Blood-Urine Negative /ul (Negative); Protein-Dipstick Negative (Negative); Urine Bilirubin Dipstick Negative (Negative); Urine Clarity Sl. Cloudy (Clear); Urine Urobilinogen Normal (Normal)
[2021-08-05 16:23] LABS: Amorphous Sediment 2+ PHOS; Transitional Epithelial - Ur 5-10 SEEN /hpf (0-5)
[2021-08-05 19:45] VITALS: BP 143/71; PULSE 75; RESP 18; TEMP 36.7; O2SAT 98
[2021-08-05] MEDS: Senna/Docusate Sodium 1 Tablet 2 TABLET PO (19:59)
[2021-08-05] MEDS: QUETIAPINE FUMARATE 200 MG TABLET PO (19:59)
[2021-08-05] MEDS: MELATONIN 3 MG TABLET PO (19:59)
[2021-08-05] MEDS: Atorvastatin Calcium 20 MG Tablet PO (20:00)
--- NOTE | 2021-08-06 03:36 | NURSING ---
Addendum entered by Jennifer Long 08/06/21 03:39: at 0330 pt was reminded that she just been to the br and was asked if she still needed to go, pt shrugged shoulders. pt offered her a snack of tea and cookies and pt returned to bed, repositioned for comfort and snack was given. pt as given her therapy schedule and staff showed her that she did not therapy until 0900 and that she had time to take a nap before breakfast. pt was agreeable. staff had done adls on pt at this time as well d/t her underwear was dirty as well as her clothes Original Note: pt had been restless at the beginning of the shift and at 2330 pt fell asleep. 0300 pt is awake and getting oob every 15min to go to the br. pt was reminded at 030
[2021-08-06] MEDS: Fluticasone 0.05% 1 SPRAY NASAL.SRY NASAL (08:10)
[2021-08-06] MEDS: Ascorbic Acid 500 MG Tablet PO (08:10)
[2021-08-06] MEDS: busPIRone 5 MG Tablet PO ×2 (08:10→19:38)
[2021-08-06] MEDS: dexAMETHasone 4 MG Tablet 2 MG PO ×2 (08:10→17:07)
[2021-08-06] MEDS: PARoxetine CR 12.5 MG Tablet 25 MG PO (08:11)
[2021-08-06] MEDS: Multivitamins,Therapeutic Tablet 1 TABLET PO (08:11)
[2021-08-06] MEDS: ARIPiprazole 2 MG Tablet PO ×2 (08:11→19:37)
[2021-08-06] MEDS: levETIRAcetam 1,000 MG Tablet 1000 MG PO ×2 (08:11→19:40)
[2021-08-06] MEDS: Senna/Docusate Sodium 1 Tablet 2 TABLET PO ×2 (08:11→19:41)
[2021-08-06] MEDS: Pantoprazole Sodium 40 MG Tablet PO (08:11)
[2021-08-06] MEDS: Heparin Injection (Vial) 5,000 UNIT/ML VIAL 5000 UNIT SC ×2 (08:12→19:38)
[2021-08-06 09:38] VITALS: BP 121/67; PULSE 71; RESP 18; TEMP 36.6; O2SAT 98
--- NOTE | 2021-08-06 12:39 | PN_ITS ---
Progress Note Afebrile Vital signs stable Maintaining appropriate oxygen saturation on room air did not feel he needed to come for family training and feels confident that he will be able to manage her at home. Had a period of agitation yesterday afternoon. This generally happens when she wakes up from sleeping and does not recognize where she is and she gets upset because she wants her ......I think she is afraid. She calms down if you just let rest and someone sits with her. She has been cooperative with therapy. She denies pain, lightheadedness, cough, sore throat, dysuria, N/V/abd pain, cephalgia, vertigo. There have been no periods of agitation today. She is making good eye contact with me and is very pleasant. She is walking in the [place]ora with CGA and no AD. Physical Exam Const alert and no apparent distress Constitutional Narrative: smiling......appropriate General Appearance: cooperative Resp normal respiratory effort and clear to auscultation bilaterally Resp Narrative: No cough. Lying flat in bed with no respiratory distress. Effort and Inspection: able to speak in complete sentences Cardio regular rate, regular rhythm and no gallops Cardio Narrative: No ectopy GI normal to inspection, nondistended, normoactive bowel sounds, soft to palpation and non-tender Extremity no calf tenderness and no pedal edema Skin Skin Narrative: [place] are removed and the incision is intact with no dehiscence. There is no erythema and no purulent DC. Assessment & Plan Assessment/Plan (1) Glioma of brain: PLAN: She is S/P debulking. MRI post op still with tumor present. she will be following up at the [facility] main [place] for radiation/chemo. (2) Dehydration: PLAN: This is persistent. She needs reminded to drink. the BUN/creat ratio is elevated but she is asymptomatic.....will continue to offer water throughout the day. (3) Paranoid schizophrenia: PLAN: Much improvement in the paranoia and aggression since the Abilify was added to the drug regimen. She will follow up with Dr. Urbina at the [facility] post [place]. Continue the current drug regimen at [place] tomorrow (4) Status post craniotomy: PLAN: Gustavo have been removed and the incision is intact and healing well. There is no dehiscence, no erythema and no purulent DC. (5) Aphasia: PLAN: More expressive than receptive at this point. She is able to follow commands and voice cues. Still having trouble with memory and with word retrieval. Will need more intensive ST post DC. The SW has arranged for [facility] for PT/OT/ST/SW/SHEIKH/SN at DC. Family is aware that she has poor safety awareness and will need 24/7 supervision when discharged. Visit Charges Inpatient E&M: 46755 Subs Hosp L2
--- NOTE | 2021-08-06 15:04 | DCINST_ITS ---
Discharge Instructions Diet Discharge Diet: No restrictions Activity Discharge Activity: May Not Drive, May Shower and Use Walker (use FWW or a cane to help with maintaining balance) Weight Bearing Status: Full weight bearing Lifting Restrictions: no more than 5 lbs Dressing / Incision Call your doctor if your incision/area has: Sudden Increased Bleeding, Increased Pain/ Swelling, Increased Redness and Foul Smelling Discharge Call your doctor if you observe: Fever of 101 or Higher, Inability to urinate, Inability to have a bowel movement, Shortness of breath, Dizziness, Fainting spells, Swelling in the ankles, Chest pain, Increased palpitations (irregular heartbeat), Calf discomfort and Uncontrolled pain Suture Line Care: Avoid Pulling/Pushing and Avoid Pinching/Bending Cleanse incision/area with: Soap & Water, Keep Dressing Clean & Dry and - (Examine the incision daily. No need to cover with a dressing unless you prefer a dry dressing over it.) Follow Up Care Please Follow Up With: Dr. Candelario Sr Test Results: Test results from this visit will be discussed in further detail at your follow-up appointment, if applicable. Discharge Plan Admission Admit Date/Time: 07/26/21 16:48 Primary Reason for Your Visit: Debility due to glioma/craniotomy and tumor resection. Attending Provider: Marleni Gonsalez Instructions Patient Instructions: Oncology Control Constipation, Eating a High-Fiber Diet, ED Constipation (Adult) Additional Instructions / Restrictions: 1. You were to follow up at the [facility] with 3 doctors and the appts were cancelled because you have been in rehab. a. Dr. Candelario aguila. Dr. Mitchell xiong. Dr. Eve Canas 2. You psychiatric medications have changed. Abilify was added to your previous meds and you will be taking it twice a day. You experienced a exacerbation of your previously well controlled schizophrenia because of many different things including the brain tumor, the surgery and the steroids to decrease the swelling in the brain. You will get your last dose of steroids in the morning on the day of discharge from rehab. You should follow up with Dr. Urbina at the [facility] after discharge from rehab. 3. You have done some good work in therapy. I think the mental/emotional disturbances will continue to improve now that you will no longer be on steroids. Remember to keep doing some exercise everyday. It is very important to balance exercise and rest. Staying active will help keep you strong enough to do the treatment for the tumor. Other important things are to eat healthy food, stay well hydrated and STAY AWAY FROM SICK PEOPLE. Always wear a mask when going out in public. Your immune system is weakened by not only the cancer but, you will be getting radiation and chemo and these can suppress the immune system as well. Take a multivitamin every day and also take a vitamin D supplement and calcium daily. 4. You have had some problems with constipation while you have been on rehab and I have given you a prescription for the stool softener we have been giving you to keep you regular. Drinking water and eating a high fiber diet help with constipation also. Staying active will help keep you regular. If you have not had a BM in 3 days take a laxative such as Dulcolax tablets, Milk of Magnesia, Correctol or Ex-Lax. If you still do not have a BM drink a bottle of magnesium citrate (150 cc's) 5. It was great to see how much you have improved since the first day you came to rehab. I hope things continue to get better for you. Stay strong and keep fighting, you have a lot to live for. If you have any questions after you leave rehab please do not hesitate to call me. Office: [phone] Discharge Orders/Prescriptions Prescriptions: New quetiapine 200 mg Tablet 200 mg PO DAILY@1999 Qty: 0 RF: 0 aripiprazole 2 mg Tablet 2 mg PO BID Qty: 60 RF: 0 sennosides-docusate sodium [Stool Softener-Stimulant Laxat] 8.6-50 mg Tablet 2 tab PO BID Qty: 120 RF: 0 Continued multivitamin [Daily Multi-Vitamin] Tablet 1 tab PO DAILY RF: 0 buspirone 5 mg tablet 5 mg PO BID RF: 0 melatonin 3 mg Tablet 3 mg PO QHS RF: 0 ascorbic acid (vitamin C) [Vitamin C] 500 mg Tablet 500 mg PO DAILY RF: 0 pantoprazole [Protonix] 40 mg Tablet,Delayed Release (Dr/Ec) 40 mg PO DAILY RF: 0 fluticasone propionate 50 mcg/actuation [place],Suspension 1 spray INTRANASAL DAILY RF: 0 paroxetine HCl 25 mg tablet extended release 24 hr 25 mg PO DAILY RF: 0 rosuvastatin 10 mg tablet 10 mg PO QHS RF: 0 levetiracetam [Keppra] 1,000 mg Tablet 1,000 mg PO BID Qty: 600 RF: 0 Changed acetaminophen [Tylenol] 325 mg Tablet 650 mg PO Q4H PRN (Reason: Fever Or Pain) Qty: 0 RF: 0 Discontinued benzonatate 100 mg Capsule 100 mg PO TID PRN (Reason: Cough) RF: 0 hydrochlorothiazide 12.5 mg capsule 12.5 mg PO DAILY RF: 0 heparin (porcine) 5,000 unit/mL Solution 5,000 unit subcut Q12H RF: 0 quetiapine [Seroquel XR] 150 mg Tablet Extended Release 24 Hr 150 mg PO DAILY RF: 0 Referrals / Follow Up: Dr Candelario Sr [Other] - 08/08/21 10:00 am ([facility]) Dr Mitchell Ortiz [Other] - 08/08/21 12:00 pm ([facility]) Dr Eve Canas [Other] - 08/13/21 3:00 pm (Radiation Oncology [facility] You have the option of doing a virtual visit. If you would like to do this instead call the office) Niki Obando MD [STAFF PHYSICIAN] - 08/09/21 10:00 am (Bring Drivers License, Insurance card and new patient paperwork Mask required) Disposition Disposition (needs filled in before D/C Order can be placed): Home Health Service
[2021-08-06 19:21] VITALS: BP 136/71; PULSE 72; RESP 16; TEMP 36.7; O2SAT 97
[2021-08-06] MEDS: QUETIAPINE FUMARATE 200 MG TABLET PO (19:36)
[2021-08-06] MEDS: Atorvastatin Calcium 20 MG Tablet PO (19:40)
[2021-08-06] MEDS: MELATONIN 3 MG TABLET PO (19:41)
[2021-08-06 21:17] VITALS: PULSE 72; RESP 18; O2SAT 97
[2021-08-06] MEDS: Nystatin Powder 15gm Bottle 1 APPLIC TOPICAL (21:45)
[2021-08-06] MEDS: Menthol/Lanolin/Calamine/Znox 113 GM Tube 1 APPLIC TOPICAL (21:45)
[2021-08-07 07:07] VITALS: BP 135/75; PULSE 68; RESP 16; TEMP 36.4; O2SAT 97
[2021-08-07] MEDS: Multivitamins,Therapeutic Tablet 1 TABLET PO (08:44)
[2021-08-07] MEDS: Fluticasone 0.05% 1 SPRAY NASAL.SRY NASAL (08:45)
[2021-08-07] MEDS: ARIPiprazole 2 MG Tablet PO (08:45)
[2021-08-07] MEDS: Heparin Injection (Vial) 5,000 UNIT/ML VIAL 5000 UNIT SC (08:45)
[2021-08-07] MEDS: busPIRone 5 MG Tablet PO (08:45)
[2021-08-07] MEDS: levETIRAcetam 1,000 MG Tablet 1000 MG PO (08:46)
[2021-08-07] MEDS: Ascorbic Acid 500 MG Tablet PO (08:46)
[2021-08-07] MEDS: Senna/Docusate Sodium 1 Tablet 2 TABLET PO (08:46)
[2021-08-07] MEDS: PARoxetine CR 12.5 MG Tablet 25 MG PO (08:46)
[2021-08-07] MEDS: Pantoprazole Sodium 40 MG Tablet PO (08:46)
[2021-08-07] MEDS: Nystatin Powder 15gm Bottle 1 APPLIC TOPICAL (08:51)
[2021-08-07] MEDS: Menthol/Lanolin/Calamine/Znox 113 GM Tube 1 APPLIC TOPICAL (08:51)
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
--- NOTE | 2021-08-07 14:22 | NURSING ---
discharge instructions given, pt and deny questions or concerns.
== END 2021-08-07 14:30 | disposition home health service (06) | DRG 949 ==
PROVIDERS: Admitting Provider Internal Medicine; Visit Provider Internal Medicine
DX: Z48.811 Encounter for surgical aftercare following surgery on the nervous system (principal); G93.6 Cerebral edema; F20.0 Paranoid schizophrenia; C71.9 Malignant neoplasm of brain, unspecified; R47.01 Aphasia; N39.0 Urinary tract infection, site not specified; B96.4 Proteus (mirabilis) (morganii) as the cause of diseases classified elsewhere; I10 Essential (primary) hypertension; F41.9 Anxiety disorder, unspecified; E78.5 Hyperlipidemia, unspecified; F17.210 Nicotine dependence, cigarettes, uncomplicated; E04.2 Nontoxic multinodular goiter; E86.0 Dehydration; R73.9 Hyperglycemia, unspecified; F32.A Depression, unspecified; T50.905A Adverse effect of unspecified drugs, medicaments and biological substances, initial encounter; Z79.899 Other long term (current) drug therapy; R91.8 Other nonspecific abnormal finding of lung field; F43.10 Post-traumatic stress disorder, unspecified
CPT/HCPCS: 36415; 80048; 80053; 81001; 82962; 83735; 84100; 85025; 87077; 87086; 87088; 87186; 92507; 97110; 97112; 97116; 97129; 97130; 97162; 97166; 97530; 97533; 97535; 97802; 97803; 99251; G0463

== ENCOUNTER 2021-10-01 13:31 | Outpatient (CLI) | payer MEDICARE, OTHER, SELFPAY ==
--- NOTE | 2021-10-01 13:45 | VDLE_ITS ---
Reason For Study: Bilateral leg edema RIGHT LEFT GSV is normal. GSV is normal. CFV is compressible, spontaneous, phasic, CFV is compressible, spontaneous, phasic, competent and demonstrates normal competent, and demonstrates normal augmentation. augmentation. FV is compressible, spontaneous, phasic, FV is compressible, spontaneous, phasic, competent and demonstrates normal competent and demonstrates normal augmentation. augmentation. POP V is compressible, spontaneous, phasic, POP V is compressible, spontaneous, phasic, competent and demonstrates normal competent and demonstrates normal augmentation. augmentation. T/P Trunk is compressible. T/P Trunk is compressible. PTV is compressible. PTV is compressible. RT PerV is compressible. LT PerV is compressible. Procedure This is a venous duplex using B-mode, color flow and spectral Doppler. Exam performed in department. A preliminary report was called and/or faxed to [facility]. VL/Venous Duplex US - Mir Extrem Interpretation Summary Deep veins of the lower extremities are bilaterally patent and compressible seg mentally. There is no evidence of deep vein thrombosis on either side. Valvular competence appears in tact within the proximal deep venous systems bilaterally. The great saphenous veins appear bila terally patent and compressible segmentally. Ordering Physician: Connor Heard Referring Physician: Bijal Oviedo Performed By: Leann Gore RVT
== END 2021-10-01 23:59 | disposition home or self-care (01) ==
PROVIDERS: PCP Nurse Practitioner Adult Health; Visit Provider Radiology Radiation Oncology
DX: C71.3 Malignant neoplasm of parietal lobe (principal); R60.0 Localized edema
CPT/HCPCS: 93970